=== PATIENT | female | born 1980 | race Caucasian/White ===

== ENCOUNTER 2017-02-06 03:38 | Emergency (ER) | payer OTHER, MEDICAID ==
[~2017-02-06] VITALS: Ht 162.6 cm; Wt 83.6 kg
[~2017-02-06 03:38] MED LIST: ALPR.5 PO; MORP1TAB24 PO; MORP1TAB25 PO
[2017-02-06] MEDS ORDERED: SODIUM CHLOR 0.9% 1000 ML INJ 1,000 ML IV SCH (03:49)
[2017-02-06 03:55] VITALS: RESP 20; O2SAT 95
[2017-02-06] MEDS ORDERED: ONDANSETRON HCL 4 MG/2 ML VIAL IVP ONE (04:00)
[2017-02-06] MEDS ORDERED: SODIUM CHLORIDE 0.9% FLUSH 10 ML FLUSH IV FLUSH PRN (04:00)
[2017-02-06] MEDS ORDERED: MORPHINE SULFATE 4 MG/ML INJ IV PUSH ONE (04:00)
[2017-02-06 04:03] VITALS: BP 133/83; PULSE 60; RESP 18; TEMP 99.2; O2SAT 97
--- NOTE | 2017-02-06 04:13 | PD ---
HPI Chief Complaint: Flank/Kidney Pain Time Seen by Provider: 03:49 Travel History International Travel<30 days: No Contact w/Intl Traveler<30days: No Traveled to known affect area: No History of Present Illness HPI 36 old female presents to the emergency department by private transportation for evaluation of severe abdominal pain left flank and left lower quadrant. Patient awakened from sleep with severe pain. No nausea no vomiting. Last menstrual period was one week ago and normal for her. Patient has history of polycystic ovary disease and polycystic kidneys. Patient is status post tubal ligation and denies . Patient also has history of arthritis anxiety depression neuropathy fibromyalgia peptic ulcer disease [id number] and occasional alcohol use. No report of injury or fall. No recent febrile illness. Patient reportedly went to sleep at bedtime feeling well and then awakened just prior to arrival to the emergency department with severe pain. Patient is unable to identify exacerbating or alleviating factor and cannot find position of comfort. PFSH Past Medical History Narrative Medical Anxiety depression arthritis polycystic ovary syndrome polycystic kidney peptic ulcer disease AB 3 tubal ligation pseudoseizure; no tobacco use; nursing notes reviewed Arthritis: Yes Anxiety: Yes Depression: Yes Diminished Hearing: No Fibromyalgia: Yes Genitourinary: Yes (PCOS, POLYCYSTIC KIDNEY) Immunizations Current: Yes Ulcer: Yes ?: Not LMP: NOW : 6 Para: 3 Miscarriage: 3 Tubal Ligation: Yes Past Surgical History Gynecologic Surgery: Yes Social History Alcohol Use: Yes (RARELY) Tobacco Use: No (QUIT 2011) Substance Use: No Allergies-Medications (Allergen,Severity, Reaction): Coded Allergies: Nonsteroidal Anti-Inflammatory Agts (Verified Allergy, Intermediate, STOMACH ULCER, 09/19/16) Reported Meds & Prescriptions Reported Meds & Active Scripts Active Reported Xanax (Alprazolam) 0.5 Mg Tab 0.5 Mg PO Q4H PRN Morphine ER (Morphine Sulfate) 30 Mg Tab 30 Mg PO BID Morphine ER (Morphine Sulfate) 15 Mg Tab 15 Mg PO Q8H Review of Systems Except as stated in HPI: all other systems reviewed are Neg General / Constitutional: No: Fever, Chills HENT: No: Congestion Cardiovascular: No: Chest Pain or Discomfort Respiratory: No: Shortness of Breath Gastrointestinal: Positive: Nausea, Abdominal Pain, No: Vomiting, Diarrhea Genitourinary: Positive: Flank Pain, No: Dysuria, Hematuria Musculoskeletal: No: Myalgias, Arthralgias Skin: No Rash Neurologic: No: Weakness Psychiatric: No: Anxiety Hematologic/Lymphatic: No: Easy Bruising Physical Exam Narrative GENERAL: Well-developed well-nourished female in obvious distress crying and yelling rocking back and forth on the exam stretcher without evidence of respiratory distress; triage vital signs are normal temperature: 99.2F, heart rate: 60, RR:18, BP: 133/83, O2sat: 97% SKIN: Warm and dry. HEAD: Normocephalic. EYES: No scleral icterus. No injection or drainage. NECK: Supple, trachea midline. No JVD or lymphadenopathy. CARDIOVASCULAR: Regular rate and rhythm without murmurs, gallops, or rubs. RESPIRATORY: Breath sounds equal bilaterally. No accessory muscle use. GASTROINTESTINAL: Abdomen soft, tender to palpation with voluntary guarding left lower quadrant, nondistended. MUSCULOSKELETAL: No cyanosis, or edema. BACK: Nontender without obvious deformity. Left flank/CVA tenderness. Data Data Last Documented VS Vital Signs Date Time Temp Pulse Resp B/P Pulse Ox O2 Delivery O2 Flow Rate FiO2 02/06/17 05:17 16 02/06/17 05:00 59 137/84 100 Room Air 02/06/17 04:03 99.2 Orders Complete Blood Count With Diff (02/06/17 03:49) Lipase (02/06/17 03:49) Urinalysis - C+S If Indicated (02/06/17 03:49) Iv Access Insert/Monitor (02/06/17 03:49) Ecg Monitoring (02/06/17 03:49) Oximetry (02/06/17 03:49) Morphine Inj (Morphine Inj) (02/06/17 04:00) Ondansetron Inj (Zofran Inj) (02/06/17 04:00) Sodium Chlor 0.9% 1000 Ml Inj (Ns 1000 M (02/06/17 03:49) Sodium Chloride 0.9% Flush (Ns Flush) (02/06/17 04:00) Ed Urine Pregnancytest Poc (02/06/17 03:49) Ct Abd/Pel W/O Iv Contrast (02/06/17 ) Cath For Specimen (02/06/17 03:49) Basic Metabolic Panel (Bmp) (02/06/17 03:49) Tamsulosin (Flomax) (02/06/17 04:45) Hydromorphone Pf Inj (Dilaudid Pf Inj) (02/06/17 04:45) Potassium Chloride (Kcl) (02/06/17 05:00) Pantoprazole Inj (Protonix Inj) (02/06/17 05:15) Ketorolac Inj (Toradol Inj) (02/06/17 05:15) Labs Laboratory Tests Test 02/06/17 04:00 White Blood Count 8.5 TH/MM3 Red Blood Count 4.71 MIL/MM3 Hemoglobin 13.9 GM/DL Hematocrit 40.2 % Mean Corpuscular Volume 85.4 FL Mean Corpuscular Hemoglobin 29.5 PG Mean Corpuscular Hemoglobin 34.5 % Concent Red Cell Distribution Width 12.2 % Platelet Count 240 TH/MM3 Mean Platelet Volume 8.7 FL Neutrophils (%) (Auto) 54.8 % Lymphocytes (%) (Auto) 35.3 % Monocytes (%) (Auto) 6.6 % Eosinophils (%) (Auto) 2.6 % Basophils (%) (Auto) 0.7 % Neutrophils # (Auto) 4.6 TH/MM3 Lymphocytes # (Auto) 3.0 TH/MM3 Monocytes # (Auto) 0.6 TH/MM3 Eosinophils # (Auto) 0.2 TH/MM3 Basophils # (Auto) 0.1 TH/MM3 CBC Comment DIFF FINAL Differential Comment Urine Color YELLOW Urine Turbidity CLEAR Urine pH 5.5 Urine Specific [place] 1.017 Urine Protein NEG mg/dL Urine Glucose (UA) NEG mg/dL Urine Ketones NEG mg/dL Urine Occult Blood TRACE Urine Nitrite NEG Urine Bilirubin NEG Urine Leukocyte Esterase NEG Urine RBC 3-5 /hpf Urine WBC 0-2 /hpf Urine Squamous Epithelial 0-5 /hpf Cells Urine Bacteria NONE /hpf Microscopic Urinalysis Comment CULT NOT INDICATED Sodium Level 143 MEQ/L Potassium Level 3.3 MEQ/L Chloride Level 106 MEQ/L Carbon Dioxide Level 28.4 MEQ/L Anion Gap 9 MEQ/L Blood Urea Nitrogen 12 MG/DL Creatinine 0.93 MG/DL Estimat Glomerular Filtration 68 ML/MIN Rate Random Glucose 119 MG/DL Calcium Level 8.5 MG/DL Lipase 115 U/L [facility] Medical Decision Making Medical Screen Exam Complete: Yes Emergency Medical Condition: Yes Medical Record Reviewed: Yes Interpretation(s) Last Impressions Abdomen/Pelvis CT 02/06/17 0000 Signed Impressions: Service Date/Time: January 04:15 - CONCLUSION: 1. 4 mm stone in the distal left ureter at the left UVJ causing hydronephrosis the left collecting system. 2. Evidence of previous granulomatous disease. Gabino Nesbitt MD CBC & BMP Diagram 02/06/17 04:00 Vital Signs Date Time Temp Pulse Resp B/P Pulse Ox O2 Delivery O2 Flow Rate FiO2 02/06/17 04:25 18 02/06/17 04:15 61 20 02/06/17 04:03 99.2 60 18 133/83 97 02/06/17 03:55 20 95 Room Air Differential Diagnosis Renal colic/ureterolithiasis, ectopic , ovarian torsion, ruptured ovarian cyst Narrative Course Patient placed on quality assurance monitor IV access obtained specimens collected and sent for resulting patient administered morphine sulfate 4 mg IV along with Zofran 4 mg IV and normal saline bolus; [id number] hCG negative; that CT abdomen and pelvis ordered CT consistent with obstructive uropathy with 4 mm stone causing hydronephrosis and hydroureter in the left UVJ. Patient informed of imaging results given additional pain medicine Dilaudid 1 mg IV as well as Toradol 30 mg IV (patient has history of stress ulcers since childhood but no recent ulcer and is able to take nonsteroidal anti- inflammatories on an as-needed basis) also a one-time dose of Flomax 0.4 mg by mouth. Patient also identified to have hypokalemia and given oral replacement of potassium It is now 5:30 AM and patient feels improved has intermittent spasm; patient is stable for outpatient management. Patient encouraged to follow-up with urologist, strain urine, follow up with her pain management physician and return to the emergency department for any concerns. Diagnosis Primary Impression: Ureterolithiasis Additional Impression: Acute unilateral obstructive uropathy Referrals: Pain Management call for appointment Urologist call for appointment Patient Instructions: General Instructions, Narcotic given in the ED Additional Instructions: Add potassium containing foods and beverages to dietary intake Increase fluid hydration Take pain medication as prescribed as needed Take medication as prescribed as needed for nausea and/or vomiting Return to the emergency department for any concerns or change in condition Follow-up with urologist Strain urine Med/Other Pt SpecificInfo: Prescription(s) given Scripts Tamsulosin (Flomax)0.4 Mg Cap0.4 Mg PO HS #7 CAP Ref 0 Prov:Zuleyma Bahena MD 02/06/17 Oxycodone-Acetaminophen (Percocet)7.5-325 mg Tab1 Tab PO Q6H PRN (PAIN) #10 TAB Ref 0 Prov:Zuleyma Bahena MD 02/06/17 Ondansetron Odt (Zofran Odt)4 Mg Tab4 Mg SL Q6HR PRN (Nausea/Vomiting) #10 TAB Ref 0 Prov:Zuleyma Bahena MD 02/06/17 Disposition: 01 DISCHARGE HOME Condition: Stable Zuleyma Bahena MD Feb 06, 2017 04:13
[2017-02-06 04:25] LABS: BLOOD, URINE TRACE (NEG); GLUCOSE,URINE NEG (NEG); KETONE, URINE NEG (NEG); NITRITE,URINE NEG (NEG); PH, URINE 5.5 (5.0-8.5)
[2017-02-06 04:26] LABS: AUTOMATED NEUTROPHIL # 4.6 TH/MM3 (1.8-7.7); BASOPHIL # 0.1 TH/MM3 (0-0.2); BASOPHIL % 0.7 % (0.0-2.0); EOSINOPHIL # 0.2 TH/MM3 (0-0.4); EOSINOPHIL % 2.6 % (0.0-4.0); HEMATOCRIT 40.2 % (35.0-46.0); HEMO FLAGS DIFF FINAL; LYMPH % 35.3 % (9.0-44.0); MEAN CELL VOLUME 85.4 FL (80.0-100.0); MEAN CORPUSCULAR HEMOGLOBIN 29.5 PG (27.0-34.0); MEAN CORPUSCULAR HGB CONC 34.5 % (32.0-36.0); MONO % 6.6 % (0.0-8.0); NEUT % 54.8 % (16.0-70.0); PLATELET COUNT 240 TH/MM3 (150-450); RED BLOOD COUNT 4.71 MIL/MM3 (4.00-5.30); RED CELL DISTRIBUTION WIDTH 12.2 % (11.6-17.2); WHITE BLOOD COUNT 8.5 TH/MM3 (4.0-11.0)
[2017-02-06 04:30] VITALS: BP 126/82; PULSE 68; RESP 18; O2SAT 98
[2017-02-06 04:32] LABS: COMMENT (UR) CULT NOT INDICATED; CULTURE IF INDICATED CULT NOT INDICATED; SQUAMOUS EPITHELIAL CELL URINE 0-5 /hpf (0-5); URINE COLOR YELLOW (YELLW/STRAW); WBC, URINE 0-2 /hpf (0-5)
[2017-02-06 04:33] LABS: POTASSIUM 3.3 MEQ/L (3.5-5.1)
[2017-02-06 04:36] LABS: BICARBONATE 28.4 MEQ/L (21.0-32.0)
--- NOTE | 2017-02-06 04:37 | RADHPO ---
EXAM DATE/TIME: 02/06/2017 04:15 [place] COMPARISON: No previous studies available for comparison. INDICATIONS : Flank pain. ORAL CONTRAST: No oral contrast ingested. RADIATION DOSE: 15.95 CTDIvol (mGy) MEDICAL HISTORY : Polycystic kidney. SURGICAL HISTORY : Tubal ligation. ENCOUNTER: Initial ACUITY: 1 day PAIN SCALE: 4/10 LOCATION: Left flank TECHNIQUE: Volumetric scanning of the abdomen and pelvis was performed. Using automated exposure control and ad justment of the mA and/or kV according to patient size, radiation dose was kept as low as reasonably achievable to obtain optimal diagnostic quality images. The lack of IV contrast limits the diagnosis for certain organ pathology. FINDINGS: LOWER LUNGS: The visualized lower lungs are clear. LIVER: Homogeneous density without lesion. There is no dilation of the biliary tree. No calcified gallston es. A few tiny liver granulomas. SPLEEN: Normal size without lesion. A few tiny splenic granulomas. PANCREAS: Within normal limits. KIDNEYS: Normal in size and shape. There is hydronephrosis of the left collecting system. The right collectin g system is unremarkable. There appears to be some cysts associated with the left kidney. The left ur eter is dilated. There is a 4 mm stone in the distal left ureter at the left UVJ. ADRENAL GLANDS: Within normal limits. VASCULAR: There is no aortic aneurysm. BOWEL/MESENTERY: The stomach, small bowel, and colon demonstrate no acute abnormality. There is no free intraperitone al air or fluid. ABDOMINAL WALL: Within normal limits. RETROPERITONEUM: There is no lymphadenopathy. BLADDER: 4 mm stone at the left UVJ. The urinary bladder is decompressed. REPRODUCTIVE: Within normal limits. INGUINAL: There is no lymphadenopathy or hernia. MUSCULOSKELETAL: Within normal limits for patient age. CONCLUSION: 1. 4 mm stone in the distal left ureter at the left UVJ causing hydronephrosis the left collecting sy stem. 2. Evidence of previous granulomatous disease. Gabino Nesbitt MD on February 06, 2017 at 4:32 Board Certified Radiologist. This report was verified electronically.
[2017-02-06] MEDS ORDERED: TAMSULOSIN HCL 0.4 MG CAP PO ONE (04:45)
[2017-02-06] MEDS ORDERED: HYDROmorphone HCL PF 1 MG/ML VIAL IV PUSH ONE (04:45)
[2017-02-06 05:00] VITALS: BP 137/84; PULSE 59; RESP 16; O2SAT 100
[2017-02-06] MEDS ORDERED: POTASSIUM CHLORIDE 20 MEQ CONTROLLED RELEASE TAB PO ONE (05:00)
[2017-02-06] MEDS ORDERED: PANTOPRAZOLE SODIUM 40 MG VIAL IV PUSH ONE (05:15)
[2017-02-06] MEDS ORDERED: KETOROLAC TROMETHAMINE 30 MG/ML (IVP) VIAL IV PUSH ONE (05:15)
[2017-02-06] MEDS ORDERED: PAXI20TA PO (05:27)
[2017-02-06] MEDS ORDERED: TAMS5CAP PO (05:29)
[2017-02-06] MEDS ORDERED: ZOFR4TAB3 SL (05:29)
[2017-02-06] MEDS ORDERED: PERC7.5T13 PO (05:29)
[2017-02-06 05:30] VITALS: BP 118/57; PULSE 62; RESP 16; O2SAT 98
[2017-02-06 05:50] VITALS: RESP 16
== END 2017-02-06 05:51 | disposition home or self-care (01) ==
LOC: PHED 03:38
DX: N13.2 Hydronephrosis with renal and ureteral calculous obstruction (principal); N13.9 Obstructive and reflux uropathy, unspecified; Q61.3 Polycystic kidney, unspecified; E28.2 Polycystic ovarian syndrome
CPT/HCPCS: 74176; 80048; 81001; 83690; 84703; 85025; 96361; 96374; 96375; 99284; C9113; J1170; J1885; J2270; J2405; J7030; P9612